=== PATIENT | female | born 1950 | race Caucasian/White ===

== ENCOUNTER → 2016-08-12 | Outpatient (CLI) | payer BC ==
[~2016-08-12] MED LIST: ASPCH81X PO; ATOR-22 PO; CLOP1TAB15 PO; GLC500 PO; MECL25TA2 PO; MULT60CA PO
--- NOTE | 2016-08-12 13:31 | DIAGNOSTIC IMAGING REPORT ---
AP PELVIS AND RIGHT HIP 2 VIEWS CLINICAL HISTORY: Right hip pain COMPARISON: None. DISCUSSION: There are mild osteoarthritic changes involving the right hip. There is lateral acetabular spurring. There are no acute fractures. No destructive lesions are visualized. IMPRESSION: 1. No acute fractures 2. Mild osteoarthritic changes Electronically signed by: Fausto Vu M.D. 08/12/2016 1:29 PM Dictated Date/Time: 08/12/2016 1:29 PM
== END | disposition home or self-care (01) ==
LOC: C.RDSM 12:55
PROVIDERS: ATTEND Physician Assistant
DX: R52 Pain, unspecified (principal)